=== PATIENT | female | born 1955 | race Caucasian/White ===

== ENCOUNTER 2018-02-07 06:38 | Emergency (ER) | END 2018-02-07 11:15 | disposition home or self-care (01) ==

== ENCOUNTER 2018-07-23 15:44 | Emergency (ER) | payer OTHER ==
[~2018-07-23] VITALS: Ht 152.4 cm; Wt 58.4 kg
[~2018-07-23 15:44] MED LIST: CALC500T91 PO; MECL12.574 PO; ONDA4TAB8 PO
[2018-07-23 16:02] VITALS: Ht 152.4 cm; Wt 58.4 kg
[2018-07-23] MEDS ORDERED: ALBU18HF INHALATION (17:59)
[2018-07-23] MEDS ORDERED: AZIT250T PO (17:59)
[2018-07-23] MEDS ORDERED: D-ME473S2 PO (17:59)
--- NOTE | 2018-07-23 18:02 | ERD ---
ER Documentation Chief Complaint Chief Complaint COUGH HPI 62-year-old female presents with a cough for last 3 weeks. It is slight productive of yellow sputum. She denies any fevers, chest pain, vomiting, hemoptysis, abdominal pain. She has a history of mild asthma and does not have any medications. She also has sore throat. She has a history of diet- controlled prediabetes. ROS All systems reviewed and are negative except as per history of present illness. Medications Home Meds Active Scripts Albuterol Sulfate* (Ventolin HFA*) 18 Gm Hfa.aer.ad, 2 PUFF INHALATION Q4H, #1 INHALER Prov:AMOL SOEI MD 07/23/18 Dextromethorphan Hb-Promethazine Hcl* (Promethazine DM* Syrup) 473 Ml Syrup, 5 ML PO Q6 PRN for COUGH for 5 Days, ML Prov:AMOL OSEI MD 07/23/18 Azithromycin* (Zithromax*) 250 Mg Tablet, 250 MG PO .ZPACK DIRECTED, #6 TAB TAKE 500 MG (2 TABS) THE FIRST DAY THEN 250 MG (1 TAB) DAYS 2-5 Prov:AMOL OSEI MD 07/23/18 Ondansetron Hcl* (Zofran*) 4 Mg Tablet, 4 MG PO Q8H PRN for NAUSEA AND/OR VOMITING, #20 TAB Prov:MENA KIM MD 02/07/18 Meclizine Hcl* (Antivert*) 12.5 Mg Tab, 12.5 MG PO Q6H PRN for DIZZINESS, #20 TAB Prov:MENA KIM MD 02/07/18 Reported Medications Calcium Carbonate ([id number]) 500 Mg Tablet, 500 MG PO DAILY, TAB 02/07/18 Allergies Allergies: Coded Allergies: ampicillin (Verified Allergy, Unknown, 09/02/14) PMhx/Soc History of Surgery: Yes (left leg) Anesthesia Reaction: No Hx Neurological Disorder: No Hx Respiratory Disorders: Yes (ASTHMA ) Hx Cardiac Disorders: No Hx Psychiatric Problems: No Hx Miscellaneous Medical Probl: No Hx Alcohol Use: No Hx Substance Use: No Hx Tobacco Use: No Smoking Status: Never smoker FmHx Family History: No diabetes, No coronary disease, No other Physical Exam Vitals Vital Signs Date Temp Pulse Resp B/P (MAP) Pulse Ox O2 O2 Flow FiO2 Time Delivery Rate 07/23/18 98.5 19 127/65 96 17:32 (85) 07/23/18 97.8 85 19 127/65 96 16:02 (85) Physical Exam Const: No acute distress Head: Atraumatic Eyes: Normal Conjunctiva ENT: Normal External Ears, Nose and Mouth. TMs and oropharynx normal. Neck: Full range of motion. No meningismus. Resp: Clear to auscultation bilaterally with slight rhonchi without rales, wheezing or retractions. Cardio: Regular rate and rhythm, no murmurs Abd: Soft, non tender, non distended. Normal bowel sounds Skin: No petechiae or rashes Back: No midline or flank tenderness Ext: No cyanosis, or edema Neur: Awake and alert Psych: Normal Mood and Affect Procedures/MDM Patient presents with productive cough for last 3 weeks. She has no signs of pneumonia, respiratory distress, hypoxemia. She has no signs of chest pain, abdominal pain. We will treat empirically given the duration Zithromax, promethazine DM, Ventolin, primary care follow-up and return precautions. The patient was stable with no new complaints during the ER course. Clinically, there is no current evidence to suggest meningitis, sepsis, acute abdomen, pneumonia, stroke, acute coronary syndrome, pulmonary embolism, aortic dissection or any other emergent condition appearing to require further evaluation or hospitalization. Patient counseled regarding my diagnostic impression and care plan. Prior to discharge all questions answered. Pt agrees with treatment plan and understands strict return precautions. Pt is instructed to follow up with primary care provider within 24-48 hours. Precautionary ins tructions provided including instructions to return to the ER if not improving or for any worsening or changing symptoms or concerns. Departure Diagnosis: Primary Impression: Cough Condition: Stable Patient Instructions: Bronchitis With Wheezing (Adult) Additional Instructions: Cheque otro vez con reece doctor primario en el proximo monique or regresa para mas o nueva simptomas. AMOL OSEI MD Jul 23, 2018 18:02
[2018-07-23 18:35] VITALS: BP 138/77; PULSE 80; RESP 20
== END 2018-07-23 18:40 | disposition home or self-care (01) ==
LOC: FTE 15:44
DX: R05 Cough (principal); J45.909 Unspecified asthma, uncomplicated
CPT/HCPCS: 99283

== ENCOUNTER 2018-10-12 09:19 | Emergency (ER) | payer OTHER ==
[~2018-10-12] VITALS: Ht 152.4 cm; Wt 54.0 kg
[~2018-10-12 09:19] MED LIST changes: +ALBU18HF INHALATION; +AZIT250T PO; +D-ME473S2 PO
[2018-10-12 09:28] VITALS: BP 138/71; PULSE 69; RESP 18; Ht 152.4 cm; Wt 54.0 kg
[2018-10-12] MEDS ORDERED: D-ME473S2 PO (09:53)
[2018-10-12] MEDS ORDERED: LORA5TAB4 PO (09:53)
[2018-10-12] MEDS ORDERED: AZIT250T PO (09:53)
[2018-10-12] MEDS ORDERED: ALBU18HF INHALATION (09:53)
[2018-10-12] MEDS ORDERED: FLUT9.9S NASAL (09:53)
--- NOTE | 2018-10-12 10:02 | ERD ---
ER Documentation Chief Complaint Chief Complaint COUGH X 1 WEEK HPI This is a 63-year-old female with history of asthma who presents with a productive cough ongoing for the past 1 week. Patient states symptoms have been progressively worsening. Cough is associated with green phlegm and a sore throat. She denies any shortness of breath or chest pain. Denies any fevers. She states she was diagnosed with bronchitis in May and states today's symptoms are similar. Denies any recent hospitalizations or antibiotics. Of note, patient is also requesting refills of her allergy medications. ROS All systems reviewed and are negative except as per history of present illness. Medications Home Meds Active Scripts Loratadine* (Claritin*) 5 Mg Tab.rapdis, 5 MG PO DAILY, #30 TAB Prov:KIERSTENIGRVIDYA YING-C 10/12/18 Fluticasone Propionate (Flonase Allergy Relief) 9.9 Ml Artemus.susp, 1 SPRAY NASAL DAILY, #1 BOTTLE TO EACH NOSTRIL Prov:KIERSTENIGRIKIVIDYA WALTON-C 10/12/18 Albuterol Sulfate* (Ventolin HFA*) 18 Gm Hfa.aer.ad, 2 PUFF INHALATION Q4H, #1 INHALER Prov:VIDYA HIRSCH PA-C 10/12/18 Dextromethorphan Hb-Promethazine Hcl* (Promethazine DM* Syrup) 473 Ml Syrup, 5 ML PO Q6 PRN for COUGH for 5 Days, ML Prov:VIDYA HIRSCH PA-C 10/12/18 Azithromycin* (Zithromax*) 250 Mg Tablet, 250 MG PO .ANDREIACK DIRECTED, #6 TAB TAKE 500 MG (2 TABS) THE FIRST DAY THEN 250 MG (1 TAB) DAYS 2-5 Prov:KIERSTENIGRIKIVIDYA WALTON PA-C 10/12/18 Ondansetron Hcl* (Zofran*) 4 Mg Tablet, 4 MG PO Q8H PRN for NAUSEA AND/OR VOMITING, #20 TAB Prov:MENA KIM MD 02/07/18 Meclizine Hcl* (Antivert*) 12.5 Mg Tab, 12.5 MG PO Q6H PRN for DIZZINESS, #20 TAB Prov:MENA KIM MD 02/07/18 Reported Medications Calcium Carbonate ([id number]) 500 Mg Tablet, 500 MG PO DAILY, TAB 02/07/18 Allergies Allergies: Coded Allergies: No Known Allergy (Unverified , 10/12/18) PMhx/Soc History of Surgery: Yes (left leg) Anesthesia Reaction: No Hx Neurological Disorder: No Hx Respiratory Disorders: Yes (ASTHMA ) Hx Cardiac Disorders: No Hx Psychiatric Problems: No Hx Miscellaneous Medical Probl: No Hx Alcohol Use: No Hx Substance Use: No Hx Tobacco Use: No Smoking Status: Never smoker Physical Exam Vitals Vital Signs Date Temp Pulse Resp B/P (MAP) Pulse Ox O2 O2 Flow FiO2 Time Delivery Rate 10/12/18 97.8 69 18 138/71 99 09:28 (93) Physical Exam Const: No acute distress Head: Atraumatic Eyes: Normal Conjunctiva ENT: Normal External Ears, Nose and Mouth. Neck: Full range of motion. No meningismus. Resp: Clear to auscultation bilaterally. No rhonchi, wheezing, rales. Speaking complete sentences. Good air movement. Cardio: Regular rate and rhythm, no murmurs Skin: No petechiae or rashes Ext: No cyanosis, or edema Neur: Awake and alert Psych: Normal Mood and Affect Procedures/MDM MEDICAL DECISION MAKIN-year-old female with history of asthma presents with productive cough and sore throat. She has no fever here. No hypoxia. Lung sounds are clear. Remaining ENT exam is unremarkable. Given duration of symptoms and patient's comorbidities (age and hx of asthma), will treat for bacterial bronchitis with antibiotics. She also given refill of her allergy medication as requested. I have low suspicion for pneumonia. She is otherwise nontoxic appearing and well-hydrated. Should be discharged home PCP follow-up and strict precautions. PRESCRIPTIONS: Azithromycin, pro-air hfa, Promethazine DM, Flonase, Claritin SPECIALIST FOLLOW UP RECOMMENDED: None Patient has been advised to follow up with primary care in 1-2 days. Departure Diagnosis: Primary Impression: Bronchitis Condition: Stable Patient Instructions: Understanding Nasal Allergies, Bronchitis With Wheezing (Adult) Referrals: COMMUNITY CLINICS YOU HAVE RECEIVED A MEDICAL SCREENING EXAM AND THE RESULTS INDICATE THAT YOU DO NOT HAVE A CONDITION THAT REQUIRES URGENT TREATMENT IN THE EMERGENCY DEPARTMENT. FURTHER EVALUATION AND TREATMENT OF YOUR CONDITION CAN WAIT UNTIL YOU ARE SEEN IN YOUR DOCTORS OFFICE WITHIN THE NEXT 1-2 DAYS. IT IS YOUR RESPONSIBILITY TO MAKE AN APPOINTMENT FOR FOLOW-UP CARE. IF YOU HAVE A PRIMARY DOCTOR --you should call your primary doctor and schedule an appointment IF YOU DO NOT HAVE A PRIMARY DOCTOR YOU CAN CALL OUR PHYSICIAN REFERRAL HOTLINE AT IF YOU CAN NOT AFFORD TO SEE A PHYSICIAN YOU CAN CHOSE FROM THE FOLLOWING [facility] [address] [facility] [address] [facility] [facility] [address] [facility] [address] [facility] [facility] [address] [facility]. [facility] [address] [facility]. [facility] YOU HAVE RECEIVED A MEDICAL SCREENING EXAM AND THE RESULTS INDICATE THAT YOU DO NOT HAVE A CONDITION THAT REQUIRES URGENT TREATMENT IN THE EMERGENCY DEPARTMENT. FURTHER EVALUATION AND TREATMENT OF YOUR CONDITION CAN WAIT UNTIL YOU ARE SEEN IN YOUR DOCTORS OFFICE WITHIN THE NEXT 1-2 DAYS. IT IS YOUR RESPONSIBILITY TO MAKE AN APPOINTMENT FOR FOLOW-UP CARE. IF YOU HAVE A PRIMARY DOCTOR --you should call your primary doctor and schedule and appointment IF YOU DO NOT HAVE A PRIMARY DOCTOR YOU CAN CALL OUR PHYSICIAN REFERRAL HOTLINE AT . IF YOU CAN NOT AFFORD TO SEE A PHYSICIAN YOU CAN CHOSE FROM THE FOLLOWING [facility] INSTITUTIONS: [facility] [address] [place] [address] [facility] [address] [place] [address] [facility] + [facility] [address] [place] [address] Additional Instructions: Paciente aconseja volver a Departamento de urgencias inmediatamente para sntomas nuevos o que empeoran . Paciente aconseja posteriores con el PCP en 1-2 mauricio. Si el paciente no tiene ninguna de atencin primaria pueden seguir con [facility] [address] [place] [address] o [facility] + [address] [address] VIDYA HIRSCH PA-C Oct 12, 2018 10:02
== END 2018-10-12 10:17 | disposition home or self-care (01) ==
LOC: FTE 09:19
DX: J45.901 Unspecified asthma with (acute) exacerbation (principal)
CPT/HCPCS: 99283